=== PATIENT | female | born 1940 | race Caucasian/White ===

== ENCOUNTER 2018-06-22 15:18 | Inpatient (IN) | payer OTHER ==
--- NOTE | 2018-06-22 15:27 | EDPHY ---
HPI/HX/ROS/PE/MDM Narrative: CHIEF COMPLAINT: Stroke alert HPI: This patient is a 77-year-old female with history of COPD. She arrives today via EMS on a stroke alert called by EMS personnel. Per EMS report, the patient was behaving normally yesterday. Around 10:00 this morning, family noted she began to seem altered and became aphasic and was leaning to the right. Family noted she was given about 15mg of her PO morphine this morning. EMS administered Narcan with no improvement in symptoms. The patient is currently on hospice care. Family is en route to the emergency department. HPI obtained primarily from EMS report on arrival as the patient is not currently speaking. REVIEW OF SYSTEMS: A comprehensive 10 system review of systems is otherwise negative aside from elements mentioned in the history of present illness and medical decision making. PMH: End-stage COPD, chronic respiratory failure. SOCIAL HISTORY: Family at bedside. Currently under hospice care. PHYSICAL EXAM: General:Patient is somnolent, responsive to verbal stimuli but refuses to open her eyes and is non-verbal. ENT:Eyes are normal to inspection. ENT inspection normal. Neck: Normal inspection. Full range of motion. Respiratory: Tachypneic. Cardiovascular: Regular rate and rhythm. Strong peripheral pulses. Normal cap refill. Abdomen:The abdomen is nontender to palpation. Back: Normal to inspection. Skin: Pale. No rash. Warm and dry. Extremities: Normal appearance. Neuro: No focal deficits. ED Course: 15:22 Met EMS on arrival. 77 y/o female with end stage COPD arrives via EMS on a stroke alert. Complaint of altered mental status, somnolence, and learning towards the right per family. Patient showed no improvement following Narcan administration. Plan for CT head, EKG, labs including CBC, chemistries, POC troponin. 15:[address] Sosa. The patient's family called her earlier today as the patient seemed altered after morphine administration. There is reportedly some disagreement between family members over the goals and extent of care for this patient. 15:[address], patient sitting up in bed, gripping rails. She is responsive to verbal stimuli but refuses to open her eyes. Pale, tachypneic. No obvious focal neurologic deficits. 15:[address] Mcfadden, radiologist. CT head is negative for acute processes. 15:40 Patient's eldest sister is at bedside. She tells me that she feels that the patient's gave the patient multiple doses of morphine inappropriately this morning, and that he was reading the directions wrong. She feels that the patient's , who is legal medical decision maker, was "pushed" into signing the patient up for hospice inappropriately. When asked why she feels patient should not be hospice status, sister states "because she does pretty well, uses her computer and walks around." As of this moment, paperwork has arrived via fax from [facility] indicating that the patient is in hospice status, and an "Allow Natural " form is clearly filled out. The , who is MDM, has not yet arrived. Pending further clarification, I do not think the patient is a tPA candidate based on existing documentation, so I have not ordered a CTA or administered tPA. 16:[address] Valderrama, hospitalist. She accepts admission to med/surg. 16:44 Notified by tech that patient's CO2 is elevated at 45. This is consistent with POC CO2 reported earlier this afternoon. Patient has known chronic hypoxic and hypercarbic respiratory failure. Patient's family has elected to take her off of hospice care. She will be DNR. Plan to admit as above. - Data Points Imaging Results: Imaging Impressions Head CT 06/22/18 15:20 Impression: 1. Mild periventricular and deep hemispheric white matter change which is nonspecific and can be seen with small vessel ischemic disease. No evidence for acute intracranial abnormality. 2. Minimal chronic sinus-related change. Results called and discussed with Pan Chao MD on 06/22/2018 at 15:34. Brain MRI 06/22/18 17:20 Impression: 1. No acute intracranial findings. 2. Atrophy with white matter change most likely related to chronic microvascular ischemic gliosis. 3. Additional findings as above. Findings communicated via secure Voalte text to Alfredo Valderrama MD 06/22/2018 at 18:47 hours. Laboratory Results: Laboratory Results 06/22/18 15:34 06/22/18 15:34 06/22/18 06/22/18 06/22/18 15:43 15:39 15:34 WBC RBC Hgb POC Hgb 14.6 gm/dL gm/dL (12.6-16.3) Hct POC Hct 43 % % (38-47) MCV MCH MCHC RDW Plt Count MPV Neut % (Auto) Lymph % (Auto) Conway % (Auto) Eos % (Auto) Baso % (Auto) Nucleat RBC Rel Count Absolute Neuts (auto) Absolute Lymphs (auto) Absolute Monos (auto) Absolute Eos (auto) Absolute Basos (auto) Absolute Nucleated RBC Immature Gran % Seg Neutrophils % Band Neutrophils % Lymphocytes % Monocytes % Eosinophils % Basophils % Metamyelocytes % Myelocytes % Promyelocytes % Blast Cells % Immature Gran # Absolute Seg Neuts Absolute Band Neuts Absolute Lymphocytes Absolute Monocytes Absolute Eosinophils Absolute Basophils Absolute Metamyelocyte Absolute Myelocytes Absolute Promyelocytes Absolute Plasma Cells Nucleated RBCs Absolute Blast Cells Plasma Cells % Platelet Estimate Hypochromasia Basophilic Stippling Oval Macrocytes Stomatocytes Smear Review By POC Sodium 144 mEq/L mEq/L (135-145) Sodium POC Potassium 4.9 mEq/L mEq/L (3.3-5.0) Potassium POC Chloride 92 mEq/L L mEq/L (97-110) Chloride Carbon Dioxide POC Total CO2 46 mEq/L H* mEq/L (22-31) Anion Gap POC BUN 20 mg/dL mg/dL (7-23) BUN Creatinine POC Creatinine 0.7 mg/dL mg/dL (0.6-1.0) Estimated GFR Glucose POC Glucose 131 mg/dL H mg/dL (70-100) Calcium POC Troponin I 0.00 ng/mL ng/mL (0.00-0.08) Troponin I TSH Pending 06/22/18 06/22/18 06/22/18 15:34 15:34 15:34 WBC 14.93 10^3/uL H 10^3/uL (3.80-9.50) RBC 4.12 10^6/uL L 10^6/uL (4.18-5.33) Hgb 12.7 g/dL g/dL (12.6-16.3) POC Hgb Hct 44.4 % % (38.0-47.0) POC Hct MCV 107.8 fL H fL (81.5-99.8) MCH 30.8 pg pg (27.9-34.1) MCHC 28.6 g/dL L g/dL (32.4-36.7) RDW 14.2 % % (11.5-15.2) Plt Count 86 10^3/uL L 10^3/uL (150-400) MPV 12.6 fL H fL (8.7-11.7) Neut % (Auto) Not Reported Lymph % (Auto) Not Reported Conway % (Auto) Not Reported Eos % (Auto) Not Reported Baso % (Auto) Not Reported Nucleat RBC Rel Count Not Reported Absolute Neuts (auto) Not Reported Absolute Lymphs (auto) Not Reported Absolute Monos (auto) Not Reported Absolute Eos (auto) Not Reported Absolute Basos (auto) Not Reported Absolute Nucleated RBC Not Reported Immature Gran % Not Reported Seg Neutrophils % 74.0 % % Band Neutrophils % 2.0 % % Lymphocytes % 4.0 % % Monocytes % 19.0 % % Eosinophils % 0.0 % % Basophils % 1.0 % % Metamyelocytes % 0.0 % % Myelocytes % 0.0 % % Promyelocytes % 0.0 % % Blast Cells % 0.0 % % Immature Gran # Not Reported Absolute Seg Neuts 11.05 10^3/uL H 10^3/uL (1.70-6.50) Absolute Band Neuts 0.30 10^3/uL 10^3/uL (0.00-0.70) Absolute Lymphocytes 0.60 10^3/uL L 10^3/uL (1.00-3.00) Absolute Monocytes 2.84 10^3/uL H 10^3/uL (0.30-0.80) Absolute Eosinophils 0.00 10^3/uL L 10^3/uL (0.03-0.40) Absolute Basophils 0.15 10^3/uL H 10^3/uL (0.02-0.10) Absolute Metamyelocyte 0.00 10^3/mL 10^3/mL (0.00-0.00) Absolute Myelocytes 0.00 10^3/mL 10^3/mL (0.00-0.00) Absolute Promyelocytes 0.00 10^3/uL 10^3/uL (0.00-0.00) Absolute Plasma Cells 0.00 10^3/uL 10^3/uL (0.00-0.00) Nucleated RBCs 0 /100 WBC /100 WBC (0-0) Absolute Blast Cells 0.00 10^3/uL 10^3/uL (0.00-0.00) Plasma Cells % 0.0 % % Platelet Estimate DECREASED L (ADEQ) Hypochromasia 1+ H Basophilic Stippling 2+ H Oval Macrocytes 1+ H Stomatocytes 2+ H Smear Review By Jackeline LEVY MD POC Sodium Sodium 143 mEq/L mEq/L (135-145) POC Potassium Potassium 5.1 mEq/L mEq/L (3.5-5.2) POC Chloride Chloride 93 mEq/L L mEq/L (97-110) Carbon Dioxide 45 mEq/l H* mEq/l (22-31) POC Total CO2 Anion Gap 5 mEq/L L mEq/L (6-14) POC BUN BUN 23 mg/dL mg/dL (7-23) Creatinine 0.5 mg/dL L mg/dL (0.6-1.0) POC Creatinine Estimated GFR > 60 Glucose 129 mg/dL H mg/dL (70-100) POC Glucose Calcium 9.6 mg/dL mg/dL (8.5-10.4) POC Troponin I Troponin I 0.020 ng/mL ng/mL (0.000-0.034) TSH Medications Given: Methylprednisolone Sodium Succinate (Solu-Medrol) 125 mg IVP Q6HRS [facility] Stop: 12/19/18 18:29 Last Admin: 06/22/18 18:59 Dose: 125 mg Discontinued Medications Sodium Chloride (Ns) 500 mls @ 0 mls/hr IV EDNOW ONE; Wide Open PRN Reason: Protocol Stop: 06/22/18 15:45 Last Admin: 06/22/18 16:32 Dose: 500 mls Naloxone HCl (Narcan) 0.4 mg IVP ONCE ONE Stop: 06/22/18 17:21 Last Admin: 06/22/18 18:59 Dose: 0.4 mg Point of Care Test Results: Chemistry 06/22/18 06/22/18 15:43 15:39 POC Sodium 144 mEq/L mEq/L (135-145) POC Potassium 4.9 mEq/L mEq/L (3.3-5.0) POC Chloride 92 mEq/L L mEq/L (97-110) POC Total CO2 46 mEq/L H* mEq/L (22-31) POC BUN 20 mg/dL mg/dL (7-23) POC Creatinine 0.7 mg/dL mg/dL (0.6-1.0) POC Glucose 131 mg/dL H mg/dL (70-100) POC Troponin I 0.00 ng/mL ng/mL (0.00-0.08) ISTAT H&H 06/22/18 15:43 POC Hgb 14.6 gm/dL gm/dL (12.6-16.3) POC Hct 43 % % (38-47) General Initial Vital Signs: Initial Vital Signs Temperature (C) 36.7 C 06/22/18 15:10 Heart Rate 97 06/22/18 15:10 Respiratory Rate 25 H 06/22/18 15:10 Blood Pressure 135/59 H 06/22/18 15:10 O2 Sat (%) 91 L 06/22/18 15:10 O2 Delivery Mode Nasal Cannula O2 (L/minute) 4 Allergies/Adverse Reactions: No Known Allergies Allergy (Unverified 06/22/18 16:17) Home Medications: Medication Instructions Recorded Fluticasone Propionate [Flonase 1 spray NS DAILY PRN 06/22/18 Allergy Relief] Fluticasone/Salmeter 250/50Mcg 1 puffs IH BID 06/22/18 [Advair 250/50 (*)] Levothyroxine [Synthroid 88 mcg 88 mcg PO DAILY06 06/22/18 (*)] Tiotropium [place] [Spiriva 2 puffs IH DAILY 06/22/18 Respimat] Morphine Sulfate [Morphine Sulfate 2.5 mg PO Q3HRS PRN #0 06/24/18 20mg/5ml] Departure - Departure Disposition: [facility] Inpatient Acute Clinical Impression: Altered mental status Qualifiers: Altered mental status type: unspecified Qualified Code(s): R41.82 - Altered mental status, unspecified Condition: Fair Report Scribed for: Pan Chao Report Scribed by: Ambreen Mathews Date of Report: 06/22/18 Time of Report: 19:55 Physician Review and Approval Statement: Portions of this note were transcribed by an ED scribe. I personally performed the history, physical exam, and medical decision making; and confirm the accuracy of the information in the transcribed note.
[2018-06-22] MEDS ORDERED: NS 500 ML IV ONE (15:44)
[2018-06-22 15:47] LABS: PLATELET COUNT 86 10^3/uL (150-400)
[2018-06-22] MEDS ORDERED: ONDANSETRON DISINTEGRATING 4 MG TAB PO PRN (17:17)
[2018-06-22] MEDS ORDERED: ALBUTEROL 3 ML DEYVIAL IH PRN (17:17)
[2018-06-22] MEDS ORDERED: PROMETHAZINE HCL 25 MG/ML INJ IVP PRN (17:17)
[2018-06-22] MEDS ORDERED: oxyCODONE IR 5 MG TAB PO PRN (17:17)
[2018-06-22] MEDS ORDERED: ACETAMINOPHEN 325 MG TAB PO PRN (17:17)
[2018-06-22] MEDS ORDERED: HYDROmorphONE/DILAUDID 1 MG/ML INJ IVP PRN (17:17)
[2018-06-22] MEDS ORDERED: ONDANSETRON 4 MG/2 ML VIAL IVP PRN (17:17)
[2018-06-22] MEDS ORDERED: HYDROCODONE/APAP 5/325 TAB PO PRN (17:17)
[2018-06-22] MEDS ORDERED: NALOXONE HCL 0.4 MG/ML INJ IVP ONE (17:20)
[2018-06-22] MEDS ORDERED: NS 1,000 ML IV SCH (17:30)
--- NOTE | 2018-06-22 17:55 | PDGENHP ---
History and Physical - Chief Complaint altered mental status - History of Present Illness 77 yo F with PMH of end stage COPD with associated chronic hypoxic and hypercarbic respiratory failure requiring continuous 3L of o2 and bipap nocturnally at home presenting with her and sister with concerns that she has been more somnolent and weak since last night. Patient has been under the care of hospice prior to presentation, but and sister expressing multiple longstanding concerns around that, particularly concerns that hospice is 'only giving her morphine' and that they are hastening her . Of note, it does seem that both family members have very little understanding of her overall condition and of what hospice care entails and signifies. Reviewing outpatient notes, it does sound like patient's has been concerned about the hospice care for quite some time and considering taking her out of hospice. Patient at the time of my evaluation is very somnolent, opens eyes intermittently but does not follow commands or verbally interact. Per she has been like that since last night, she was unable to get up and walk or dress herself last night or this am and normally is able to walk independently. When she still was not waking up this am, called the hospice nurse who he states became very concerned and recommended he call 911. Apparently on transport patient was given narcan without any change in her mental status, however is convinced that all of this is due to the morphine--she got one dose last night and 3 today per recommendation of hospice. Both and sister state that she was normally interactive as early as yesterday morning and was ambulating and speaking at her baseline at that time. did place her on bipap last night as per routine. History Information - Allergies/Home Medication List Allergies/Adverse Reactions: No Known Allergies Allergy (Unverified 06/22/18 16:17) Home Medications: Azithromycin [Zithromax] 250 mg PO MOWEFR 06/22/18 [Last Taken 06/20/18] Fluticasone Propionate [Flonase Allergy Relief] 1 spray NS DAILY PRN 06/22/18 [ Last Taken Unknown] Fluticasone/Salmeter 250/50Mcg [Advair 250/50 (*)] 1 puffs IH BID 06/22/18 [ Last Taken 06/22/18] Levothyroxine [Synthroid 88 mcg (*)] 88 mcg PO DAILY06 06/22/18 [Last Taken ] Morphine Sulfate [Morphine Sulfate 20mg/5ml] 5 mg PO Q3HRS PRN 06/22/18 [Last Taken 06/22/18] Tiotropium [place] [Spiriva Respimat] 2 puffs IH DAILY 06/22/18 [Last Taken ] amLODIPine BESYLATE [Norvasc 2.5 mg (*)] 2.5 mg PO DAILY 06/22/18 [Last Taken ] I have personally reviewed and updated: family history, medical history, social history, surgical history - Past Medical History COPD (end stage, on hospice prior to arrival), hypertension Additional medical history: chronic hypoxic/hypercarbic respiratory failure. hypothyroid. malnutrition - Surgical History Reports: no pertinent surgical hx - Family History Positive for: non-pertinent - Social History Smoking Status: Former smoker Alcohol Use: None Drug Use: None Additional social history: , lives with her , previously on hospice, PCP Sheila, [employer] Review of Systems Review of Systems: unobtainable 2/2 patients mental status Physical Exam Physical Exam: Temp Pulse Resp BP Pulse Ox 36.7 C 90 16 140/63 H 93 06/22/18 15:10 06/22/18 16:21 06/22/18 16:21 06/22/18 16:21 06/22/18 16:21 Constitutional: chronically ill appearing, cachectic Eyes: PERRL, anicteric sclera Ears, Nose, Mouth, Throat: moist mucous membranes Cardiovascular: regular rate and rhythym, no murmur, rub, or gallop, No edema Respiratory: reduced air movement, expiratory wheeze Gastrointestinal: soft, non-tender abdomen, No guarding, No rebound, No distension Genitourinary: no bladder tenderness Skin: warm, normal color Musculoskeletal: No asymmetric calves Neurologic: CN II-XII Intact, No AAOx3 Psychiatric: encephalopathic Lab Data & Imaging Review 06/22/18 15:34 06/22/18 15:34 WBC 14.93 10^3/uL (3.80-9.50) H 06/22/18 15:34 RBC 4.12 10^6/uL (4.18-5.33) L 06/22/18 15:34 Hgb 12.7 g/dL (12.6-16.3) 06/22/18 15:34 POC Hgb 14.6 gm/dL (12.6-16.3) 06/22/18 15:43 Hct 44.4 % (38.0-47.0) 06/22/18 15:34 POC Hct 43 % (38-47) 06/22/18 15:43 MCV 107.8 fL (81.5-99.8) H 06/22/18 15:34 MCH 30.8 pg (27.9-34.1) 06/22/18 15:34 MCHC 28.6 g/dL (32.4-36.7) L 06/22/18 15:34 RDW 14.2 % (11.5-15.2) 06/22/18 15:34 Plt Count 86 10^3/uL (150-400) L 06/22/18 15:34 MPV 12.6 fL (8.7-11.7) H 06/22/18 15:34 Neut % (Auto) Not Reported 06/22/18 15:34 Lymph % (Auto) Not Reported 06/22/18 15:34 Sharkey % (Auto) Not Reported 06/22/18 15:34 Eos % (Auto) Not Reported 06/22/18 15:34 Baso % (Auto) Not Reported 06/22/18 15:34 Nucleat RBC Rel Count Not Reported 06/22/18 15:34 Absolute Neuts (auto) Not Reported 06/22/18 15:34 Absolute Lymphs (auto) Not Reported 06/22/18 15:34 Absolute Monos (auto) Not Reported 06/22/18 15:34 Absolute Eos (auto) Not Reported 06/22/18 15:34 Absolute Basos (auto) Not Reported 06/22/18 15:34 Absolute Nucleated RBC Not Reported 06/22/18 15:34 Immature Gran % Not Reported 06/22/18 15:34 Seg Neutrophils % 74.0 % 06/22/18 15:34 Band Neutrophils % 2.0 % 06/22/18 15:34 Lymphocytes % 4.0 % 06/22/18 15:34 Monocytes % 19.0 % 06/22/18 15:34 Eosinophils % 0.0 % 06/22/18 15:34 Basophils % 1.0 % 06/22/18 15:34 Metamyelocytes % 0.0 % 06/22/18 15:34 Myelocytes % 0.0 % 06/22/18 15:34 Promyelocytes % 0.0 % 06/22/18 15:34 Blast Cells % 0.0 % 06/22/18 15:34 Immature Gran # Not Reported 06/22/18 15:34 Absolute Seg Neuts 11.05 10^3/uL (1.70-6.50) H 06/22/18 15:34 Absolute Band Neuts 0.30 10^3/uL (0.00-0.70) 06/22/18 15:34 Absolute Lymphocytes 0.60 10^3/uL (1.00-3.00) L 06/22/18 15:34 Absolute Monocytes 2.84 10^3/uL (0.30-0.80) H 06/22/18 15:34 Absolute Eosinophils 0.00 10^3/uL (0.03-0.40) L 06/22/18 15:34 Absolute Basophils 0.15 10^3/uL (0.02-0.10) H 06/22/18 15:34 Absolute Metamyelocyte 0.00 10^3/mL (0.00-0.00) 06/22/18 15:34 Absolute Myelocytes 0.00 10^3/mL (0.00-0.00) 06/22/18 15:34 Absolute Promyelocytes 0.00 10^3/uL (0.00-0.00) 06/22/18 15:34 Absolute Plasma Cells 0.00 10^3/uL (0.00-0.00) 06/22/18 15:34 Nucleated RBCs 0 /100 WBC (0-0) 06/22/18 15:34 Absolute Blast Cells 0.00 10^3/uL (0.00-0.00) 06/22/18:34 Plasma Cells % 0.0 % 06/22/18 15:34 Platelet Estimate DECREASED (ADEQ) L 06/22/18 15:34 Hypochromasia 1+ H 06/22/18 15:34 Basophilic Stippling 2+ H 06/22/18 15:34 Oval Macrocytes 1+ H 06/22/18 15:34 Stomatocytes 2+ H 06/22/18 15:34 POC Sodium 144 mEq/L (135-145) 06/22/18 15:43 Sodium 143 mEq/L (135-145) 06/22/18 15:34 POC Potassium 4.9 mEq/L (3.3-5.0) 06/22/18 15:43 Potassium 5.1 mEq/L (3.5-5.2) 06/22/18 15:34 POC Chloride 92 mEq/L (97-110) L 06/22/18 15:43 Chloride 93 mEq/L (97-110) L 06/22/18 15:34 Carbon Dioxide 45 mEq/l (22-31) H* 06/22/18 15:34 POC Total CO2 46 mEq/L (22-31) H* 06/22/18 15:43 Anion Gap 5 mEq/L (6-14) L 06/22/18 15:34 POC BUN 20 mg/dL (7-23) 06/22/18 15:43 BUN 23 mg/dL (7-23) 06/22/18 15:34 Creatinine 0.5 mg/dL (0.6-1.0) L 06/22/18 15:34 POC Creatinine 0.7 mg/dL (0.6-1.0) 06/22/18 15:43 Estimated GFR > 60 06/22/18 15:34 Glucose 129 mg/dL (70-100) H 06/22/18 15:34 POC Glucose 131 mg/dL (70-100) H 06/22/18 15:43 Calcium 9.6 mg/dL (8.5-10.4) 06/22/18 15:34 POC Troponin I 0.00 ng/mL (0.00-0.08) 06/22/18 15:39 Troponin I 0.020 ng/mL (0.000-0.034) 06/22/18 15:34 Visualized and Interpreted imaging results: Yes Interpretation: head CT: negative Assessment & Plan Assessment: Encephalopathy acute (Acute) 77 yo F with PMH of end stage COPD with associated chronic hypoxic and hypercarbic respiratory failure admitted with acute encephalopathy # metabolic encephalopathy: per patient has had abrupt change since last night, she does not appear to have focal changes neurologically but very difficult to assess given her lack of responsiveness. Brought in as stroke alert --head CT negative, brain MR pending. Suspect could be related to co2 narcosis as next given HCO3 of 46 on BMP as next. Narcan w/o change by EMS, but will repeat per family request. # acute on chronic hypoxic/hypercarbic respiratory failure: she is at her baseline o2 requirement but HCO3 of 46 and concern for worsening hypercarbia-- no old labs available but per PCP report her baseline has been around 40 for some time. ABG pending, CXR pending, will start on continuous bipap for now # copd, end stage: difficult to determine if this represents an exacerbation of her end stage disease or simply disease progression, will start bipap as above, ABG pending, scheduled BDs and IV steroids, abx if indicated # malnutrition: BMI of 18, family reports she has always been low weight but has lost approximately 10 pounds in last several months, will ask for dietary eval, likely due to pulmonary cachexia # lung nodules: known nodules being followed by pulmonary, not surgical candidate per pulm reports # hypothyroid: continue levothyroxine, will check TSH # leukocytosis: CXR and UA pending, family denies infectious sxs prior to her abrupt change in mental status # DNR--previously on hospice care prior to admission, is MDPOA IP status, patient with multiple active high risk issues requiring SDU care, in addition to usual care an additional 35 min critical care time spent in evaluation of labs/imaging and coordination with other providers Patient new to my care. Old records reviewed and summarized as above. Care plan reviewed with ER doctor as above, hx obtained from family and chart given patients mental status
[2018-06-22] MEDS: methylPREDNISolone SOD SUCC 125 MG/2 ML VIAL IVP SCH (18:59)
--- NOTE | 2018-06-22 19:00 | ASMTCMCOM ---
CM Note CM Note Notes: Pt presented to the ED via EMS from her home as a Stroke Alert due to pt reportedly becoming altered and aphasic around 10am. Pt admitted for hypoxia and AMS. Pt's PMH includes end stage COPD, HTN, hypothyroid. Pt has been enrolled w/[facility] since May 2018 but per EMS, pt's Darin (H: [phone]; C: [phone]) was on scene and decided to have pt transported due to the pt's rapid onset of change of condition and decreased mentation. Per EMS, Darin and pt's family was rather upset on scene re: whether to have pt transported or not. Darin and pt's older sister, Janice (H:[phone]; C: [phone]), daughter Alma Castillo (c:[phone]), son Parker Castillo (c: [phone]), and GASTON Tinoco (c:[phone]) arrived to the ED. This CM and the ED MD spoke w/Darin and family at bedside and spent time discussing hospice overall, etc; as it definitely seems that Janice Webster and other family members have some misunderstanding/denial(?) re:hospice care, pt's prognosis, what comfort care looks like, etc. Overall, it does seem that Darin is not emotionally ready to have pt decline and potentially at home (?). *See Providers Reports/H&P* Darin has decided to revoke hospice and have pt admitted for further testing "so we can maybe figure out whats going on." PB received a call from Brenda Horvath, RN Librarian Head ([phone]) for pt's PCP Dr Andria Sosa at [facility] ([phone]) and she had contacted [facility] and requested pt's advance directive, living will and other medical records be faxed to the ED; received pt's Advance Directive and Living Will, which will be scanned into pt's e-chart. PB spoke Babs, the daytime MOD for [facility] ( c:[phone]) and updated him on the pt's situation and admission. PB also called the evening MOD, Pita (c: [phone]) and updated her as well. CM spoke w/JOB John w/[facility] and she said an RN will come to [facility] around 1900 to go over revocation paperwork with Darin. CM confirmed that Darin will be able to stay until the [facility] RN arrives. Darin did say that ultimately the pt would like to be at home and if she goes home, she would want to get back on hospice. Pt and live [place] on [facility]. Pt's staff engineer is Dr Ward. Anticipate pt hopefully to stabilize and DC home w/[facility] if they re-eval and re-accept pt. CM to follow. Date Signed: 06/22/2018 07:00 PM Electronically Signed By:Candace Kebede RN
[2018-06-22] MEDS: IPRATROPIUM/ALBUTEROL 3 ML DEYVIAL IH SCH (21:10)
[2018-06-23] MEDS: methylPREDNISolone SOD SUCC 125 MG/2 ML VIAL IVP SCH ×3 (00:30→13:41)
[2018-06-23] MEDS: IPRATROPIUM/ALBUTEROL 3 ML DEYVIAL IH SCH ×4 (05:03→21:40)
[2018-06-23 06:08] LABS: PLATELET COUNT 58 10^3/uL (150-400)
[2018-06-23] MEDS: LEVOTHYROXINE 88 MCG TAB PO SCH (08:00)
[2018-06-23] MEDS ORDERED: ENOXAPARIN 40 MG/0.4 ML SYR SC SCH (09:00)
--- NOTE | 2018-06-23 11:08 | HOSPPROG ---
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 #Acute metabolic encephalopathy 2/2 CO2 narcosis: Improving with ventilatory support. #Acute on chronic hypoxic/hypercarbic respiratory failure - Continue supplemental O2 to keep sat 88-92%, bipap at night #End-stage COPD: Followed by [facility]. No e/o exacerbation - Continue scheduled bronchodilators, prn albuterol. Stopped steroids #Malnutrition 2/2 pulmonary cachexia #Lung nodules: Known, followed by pulm, not surgical candidate per pulm reports. #Hypothyroid: Continue levothyroxine. #Leukocytosis: Worsened. Not septic. #Goals of care: DNR/DNI, which is appropriate. Previously on hospice up until this admission. Disconnect between severity of illness, patient's wishes for her care, and what hospice care entails. Have discussed with family however no formal decision yet on next steps; will require ongoing discussions. - Pall and hospice care consults placed Dispo: remain in SDU Subjective: Wearing bipap, unable to arouse this AM. Later in morning, RN noted that patient more alert. Taken off bipap and now on nasal canula. Objective: Vital Signs Temp Pulse Resp BP Pulse Ox 36.5 C 89 34 H 122/52 H 95 06/23/18 08:17 06/23/18 08:17 06/23/18 08:17 06/23/18 08:17 06/23/18 08:17 Laboratory Results 06/23/18 05:10 06/23/18 07:45 06/22/18 06/23/18 06/24/18 05:59 05:59 05:59 Intake Total 500 Balance 500 - Physical Exam Constitutional: no apparent distress, cachectic Eyes: PERRL Ears, Nose, Mouth, Throat: dry mucous membranes Cardiovascular: regular rate and rhythym, no murmur, rub, or gallop Respiratory: reduced air movement, respiratory distress Gastrointestinal: normoactive bowel sounds, soft, non-tender abdomen, no palpable masses Genitourinary: no bladder fullness, no bladder tenderness, no renal bruits Skin: no rashes or abrasions, no fluctuance, no induration Musculoskeletal: generalized weakness Neurologic: other (somnolent) Psychiatric: encephalopathic ICD10 Worksheet Patient Problems: Problems Problem Status Onset Altered mental status Acute Encephalopathy acute Acute
--- NOTE | 2018-06-23 12:23 | PDMN ---
Medical Necessity Medical necessity: Pt meets IP criteria per MD & MCG M-100; est los >2 mn for eval/tx of end stage COPD (on hospice prior to arrival) w/associated chronic hypoxic/hypercarbic respiratory failure, acute metabolic encephalopathy & malnutrition; pt w/multiple high risk issues requiring SDU care; per H&P & order 06/22/18
--- NOTE | 2018-06-23 14:12 | GCON ---
[f rep st] CONSULTATION PULMONARY CRITICAL CARE CONSULTATION DATE OF CONSULTATION: 06/23/2018 REASON FOR CONSULTATION: Abnormal mental status, secondary to hypercarbic respiratory failure in a p atient with end-stage COPD/emphysema. HISTORY: The patient is a 77-year-old with end-stage COPD. She has chronic hypoxemic respiratory fa ilure as well as chronic hypercarbia. She has BiPAP at night for ventilatory support, not for obstru ctive sleep apnea. She lives with her at approximately 7000 feet. She seems to do relativel y well sometimes, is somnolent and more short of breath/dyspneic at others. She has been on hospice recently. She was started on MS Contin which has been used intermittently at home. She and her fami ly are somewhat less confused about the goals of hospice care. Secondary to increased lethargy, her gave her some small doses of MS Contin. Last night, she was more somnolent, unable to get up and walk. Her subsequently called 911. Despite her no code status and hospice care, she wa s transported by ambulance to the emergency department and treated aggressively. She was placed on B iPAP. Narcan was given. An MRI of the head was done secondary to her abnormal mental status despite knowledge of her pCO2 of 125. A CT scan of the head was done first. Chest x-ray showed no evidence of pneumonia. She was admitted to the intensive care unit on BiPAP. Blood gas on admission showed a pCO2 of greater than 125 and a pH of 7.10. PO2 was 132 on high-flow oxygen and presumably BiPAP. Subsequent blood gas showed a pH of 7.21 this morning, with a pCO2 of 109 and pO2 of 44. Saturation was 81%. This may have been venous? She was also on BiPAP at this time. Overnight, she was lethargic. She has subsequently woken up. She is off BiPAP now and states that s he wants to go home. She last saw Dr. Ward in the office on June 06. She was doing relatively well a t that time. She was even referred to pulmonary rehabilitation. PAST MEDICAL HISTORY: Remarkable for hypothyroidism, mild systemic hypertension in addition to her s evere underlying COPD/emphysema. Forced vital capacity in December 2017 was approximately 1.7 L, 75% of predicted. FEV1 was approximately 0.5 L, 32% of predicted. She had no response to bronchodilato r at that time. MEDICATIONS: Home medications included Flonase; azithromycin Monday, Monday, Monday; amlodipine, Advair, Spiriva, p.r.n. albuterol, levothyroxine, and MS Contin. SOCIAL HISTORY: The patient is , with a very supportive and extended family. She is no longer smoking. Significant alcohol is negative. FAMILY HISTORY: Noncontributory. Other members of her family have had COPD/emphysema/hypoxemia. REVIEW OF SYSTEMS: Ten point review of systems is negative except as mentioned above. She has had n o infectious symptoms. DRUG ALLERGIES: None known. PHYSICAL EXAMINATION: GENERAL: Reveals a thin woman who is in no distress. She is on an oxygen mas k currently at 2 to 3 L with saturations of approximately 90%. VITAL SIGNS: Blood pressure is 122/5 2. Heart rate 90 with sinus rhythm on the monitor. Respiratory rate is approximately 24 and shallow . She is afebrile. HEENT: Unremarkable for lymphadenopathy or thyromegaly. There is no obvious ju gular venous distention. Mucous membranes are somewhat dry. CHEST: Reveals markedly diminished nahed ath sounds bilaterally without focal findings. Expiratory phase is quite prolonged. There are a few expiratory wheezes. She is not "tight." No rales are present, no rhonchi, no consolidation. HEART : Regular in rate and rhythm. Heart tones are distant. Soft systolic murmur is present. There is no obvious gallop. P2 appears increased. ABDOMEN: Soft, nontender. Bowel sounds are present but d iminished. No Doyle catheter is in place. EXTREMITIES: Unremarkable for edema. SCDs are in place. NEUROLOGIC: Examination is nonfocal. She moves all extremities equally. She is hard of hearing. She is oriented. Responses are appropriate. LABORATORIES: Radiologic studies are as outlined above. Laboratory: White blood cell count is 19,200, hematocrit 44, platelets are 58,000. There is a shift to the left. Sodium is 145, potassium 5.0, CO2 44. BUN 32 with a creatinine of 0.5. Glucose is 13 2. Troponin was negative. Calcium is 8.9. TSH is 0.73. ASSESSMENT AND PLAN: 1. End-stage chronic obstructive pulmonary disease/emphysema. 2. Hypercarbic respiratory failure. 3. Chronic hypoxemia. 4. Do not resuscitate per advance directives. 5. Hospice care. The patient presents with some challenging issues. First, she clearly has end-stage chronic obstruct ramandeep pulmonary disease with marked hypercarbia. She has little in the way of pulmonary reserve. A do not resuscitate status is totally appropriate as she would not survive cardiopulmonary resuscitation and, if placed on the ventilator, she would not be able to get off. She does have BiPAP support at home for ventilatory assistance. She is using this at night. Secondly, when she does well, despite the severity of her disease and little in the way of pulmonary reserve, she does pretty well, gets out, can go to doctor's appointments and even participate in [facility] pulmonary rehabilitation. Because of this, there is at times some disconnect between the severit y of her disease, closeness to , her wishes and the wishes of her family. As a result, goals of care with hospice are unclear to the patient and her family. This will need to be discussed with he r caregivers and her hospice team. At the current time we will continue all present therapies. Solu-Medrol will be stopped as I find no evidence of an exacerbation or significant bronchospasm. Low-dose prednisone can be continued. She is at risk for increased ventilatory failure with hyperoxia as she primarily has only a hypoxic driv e to breathe. Saturations will thus be kept around 90%. If she is above 92%, oxygen will be turned down. Upper 80s are totally acceptable. Despite her wishes to return home today, I do not think this is appropriate, at least initially. I w ould like to see how she does back on nasal cannula oxygen. Her baseline at home at 7000 feet is 4 L during the day. Here, she would probably be on 2 to 3. Hospice consultation with her hospice care team will be requested while she is here in the hospital if possible. All the above was discussed at length with the patient's family and nursing. Further plans and recommendations will be made based on her progress over the next 12 to 24 hours. /[id number]/MODL
--- NOTE | 2018-06-23 17:43 | ASMTCMCOM ---
PB Note CM Note Notes: CM spoke with [facility] and they confirmed that pt is no longer linked with their services. If they would like to return to their services on Hospice, they would have to reapply. CM contacted [facility] in attempt to see fi they could accommodate pt's need and request for going home today on hospice and they were unable to accept pt due to needing a face to face prior to admission. PB spoke at length with pt's Darin and sister Janice who found [facility] very helpful but were very concerned and were happy that they decided to bring pt to the hospital. Later in the conversation pt made it very clear that she wanted to go home and not be in the hospital. CM initiated referral with [facility] who were unable to come see pt until tomorrow at 10am to go through the admission process. PB spoke with Payton and Nurse Germania who were trying to work out a way to have pt be discharged from here and have overnight coverage over the night before they can start the admission process. PB spoke with Dr. Muniz who then spoke with family and everyone was in agreement her staying the night here would be the best thing for her and family because of unsure nightly coverage. Pt was sitting up in bed and is in agreement with this plan. Pt's family is going to attend meeting at 9am and obtain education on Hospice in attempts to avoid any issues in the future. PB spoke at length with pt's Darin without pt's sister present who says he has been preparing himself for her . He says that He would appreciate the family education about hospice, etc. Germania from [facility] is coming at 9am tomorrow and family members will be present. PB notified her of family's questions and is prepared to meet with everyone. notified. Plan Discharge tomorrow on [facility]. Date Signed: 06/23/2018 05:42 PM Electronically Signed By:ROSENDO Hernandez
[2018-06-24] MEDS: LEVOTHYROXINE 88 MCG TAB PO SCH (05:12)
[2018-06-24] MEDS: IPRATROPIUM/ALBUTEROL 3 ML DEYVIAL IH SCH (05:43)
[2018-06-24 08:19] VITALS: BP 135/65
--- NOTE | 2018-06-24 11:16 | PDDCSUM ---
Discharge Summary Discharge Summary: Date of Admission: 06/22/2018 Date of Discharge: 06/24/2018 Disposition: home with home hospice Discharge Diagnoses: 1. End stage COPD/emphysema 2. Chronic hypoxemic/hypercarbic respiratory failure 3. Acute metabolic encephalopathy 2/2 CO2 narcosis 4. Malnutrition 2/2 pulmonary cachexia 5. Lung nodules 6. Hypothyroidism Brief Hospital Course: 77 yo F with PMH of end stage COPD with associated chronic hypoxic and hypercarbic respiratory failure admitted with acute encephalopathy. She was started on hospice care for her pulmonary issues about 4 weeks ago. She was given morphine at home and became encephalopathic and unarousable. They called her hospice company who reportedly asked them to come to the hospital. She was found to have a pCO2>125. She was placed on bipap with some improvement in mentation. There seemed to be a disconnect between the severity of her illness, patient's wishes for her care, and what hospice care entails. Long discussion with family (with corporate sales representative from hospice present) where they were educated on hospice. They ultimately agreed that this was best for patient. She was discharged back to home under hospice care with no plans to return to the hospital. We advised to only use roxanol for significant symptomatic dyspnea or severe discomfort/pain. We continued her inhaled therapies and bipap support at night. Continue supplemental oxygen. Medications: Please refer to EMR. Follow Up Plan: With [facility].
--- NOTE | 2018-06-24 11:16 | PDIAF ---
- Diagnosis Diagnosis: Chronic respiratory failure. Home with hospice. Code Status: Do Not Resuscitate - Medication Management Discharge Medications: electronically signed and located in the Home Medication List. PICC Care - Routine: N/A - Orders Diet Recommendation: no restrictions on diet Doyle: Not applicable - Follow Up Care Current Providers and Referrals: Patient,NotPresent [Primary Care Provider] - As per Instructions
--- NOTE | 2018-06-24 11:28 | ASMTDCNOTE ---
Case Management Discharge Discharge Order Complete? Answers: Yes Patient to Obtain Answers: Other Notes: [facility] Medications Transportation Arranged Answers: [facility] Case Management Transport Answers: Yes Form Complete Faxed Final Orders Answers: Yes Agency/Facility Transfer Answers: Yes Report Printed & Faxed to Receiving Agency Family Notified Answers: Yes Discharge Comments Notes: Germania from [facility] came to speak with family at 9:00am. Pts , sister and numerous other family members were involved in the meeting to discuss hospice and obtain education about the process and how to respect the pt's wishes to be home and NOT return to the hospital. They signed on with [facility] and transport was scheduled for 11:15am. put in dc orders and CM submit via allscripts to [facility]. No other CM needs identified. Date Signed: 06/24/2018 11:27 AM Electronically Signed By:ROSENDO Hernandez
--- NOTE | 2018-06-24 11:30 | ASDISCHSUM ---
Discharge Information Plan Status:Hospice-Home Medically Cleared to Leave: Discharge Date:06/24/2018 11:24 AM CM D/C Disposition:Hospice Home ADT D/C Disposition:Hospice Home Projected Discharge Date:06/23/2018 11:00 AM Transportation at D/C:ALS/BLS Discharge Delay Reason: Follow-Up Date:06/23/2018 11:00 AM Discharge Slot: Final Diagnosis: Placement Information Referral Type:*Hospice Referral ID:[id number] Provider Name:[facility] Address 1:[address] [place] Address 2: City:[place] Selection Factors: State:[place] Patient Contact Information Contact Name:GÓMEZ Relationship: Address:[address] Work Phone: [facility]:[place] Alternate Phone: State/Zip Code:[place] [address] Email: Financial Information Financial Class:Medicare Primary Plan Desc:MEDICARE OUTPATIENT Primary Plan Number:[id number] Secondary Plan Desc:CARMEN STRINGERTY Secondary Plan Number:[id number] Assessment Information LACE LACE Length of stay for Answers: 1 day current admission Acuity / Level of Answers: Yes Care: Did the patient have an inpatient admission? Comorbidities - select Answers: Chronic pulmonary disease all that apply Other Notes: osteoporosis, hypothyro id, cataracts # of Emergency department Answers: 1-2 visits in the last 6 months Score: 8 Date Signed: 06/24/2018 11:28 AM Electronically Signed By:ROSENDO Hernandez [facility] CM Progress Note CM Note CM Note Notes: Pt presented to the ED via EMS from her home as a Stroke Alert due to pt reportedly becoming altered and aphasic around 10am. Pt admitted for hypoxia and AMS. Pt's PMH includes end stage COPD, HTN, hypothyroid. Pt has been enrolled w/[facility] since May 2018 but per EMS, pt's Darin (H: [phone]; C: [phone]) was on scene and decided to have pt transported due to the pt's rapid onset of change of condition and decreased mentation. Per EMS, Darin and pt's family was rather upset on scene re: whether to have pt transported or not. Darin and pt's older sister, Janice (H:[phone]; C: [phone]), daughter Alma Castillo (c:[phone]), son Parker Castillo (c: [phone]), and GASTON Tinoco (c:[phone]) arrived to the ED. This CM and the ED MD spoke w/Darin and family at bedside and spent time discussing hospice overall, etc; as it definitely seems that Janice Webster and other family members have some misunderstanding/denial(?) re:hospice care, pt's prognosis, what comfort care looks like, etc. Overall, it does seem that Darin is not emotionally ready to have pt decline and potentially at home (?). *See Providers Reports/H&P* Darin has decided to revoke hospice and have pt admitted for further testing "so we can maybe figure out whats going on." PB received a call from Brenda Horvath, RN Workers Compensation Analyst ([id number]) for pt's PCP Dr Andria Sosa at [facility] ([id number]) and she had contacted [facility] and requested pt's advance directive, living will and other medical records be faxed to the ED; received pt's Advance Directive and Living Will, which will be scanned into pt's e-chart. PB spoke Babs, the daytime MOD for [facility] ( c:[phone]) and updated him on the pt's situation and admission. PB also called the evening MOD, Pita (c: [phone]) and updated her as well. PB spoke w/JOB John w/[facility] and she said an RN will come to [facility] around 1900 to go over revocation paperwork with Darin. PB confirmed that Darin will be able to stay until the [facility] RN arrives. Darin did say that ultimately the pt would like to be at home and if she goes home, she would want to get back on hospice. Pt and live [place] [facility]. Pt's airset molder is Dr Ward. Anticipate pt hopefully to stabilize and DC home w/[facility] if they re-eval and re-accept pt. CM to follow. Date Signed: 06/22/2018 07:00 PM Electronically Signed By:Candace Kebede RN [facility] Progress Note CM Note CM Note Notes: CM spoke with [facility] and they confirmed that pt is no longer linked with their services. If they would like to return to their services on Hospice, they would have to reapply. PB contacted [facility] in attempt to see fi they could accommodate pt's need and request for going home today on hospice and they were unable to accept pt due to needing a face to face prior to admission. PB spoke at length with pt's Dairn and sister Janice who found [facility] very helpful but were very concerned and were happy that they decided to bring pt to the hospital. Later in the conversation pt made it very clear that she wanted to go home and not be in the hospital. PB initiated referral with [facility] who were unable to come see pt until tomorrow at 10am to go through the admission process. PB spoke with Payton and Nurse Germania who were trying to work out a way to have pt be discharged from here and have overnight coverage over the night before they can start the admission process. PB spoke with Dr. Muniz who then spoke with family and everyone was in agreement her staying the night here would be the best thing for her and family because of unsure nightly coverage. Pt was sitting up in bed and is in agreement with this plan. Pt's family is going to attend meeting at 9am and obtain education on Hospice in attempts to avoid any issues in the future. CM spoke at length with pt's Darin without pt's sister present who says he has been preparing himself for her . He says that He would appreciate the family education about hospice, etc. Germania from [facility] is coming at 9am tomorrow and family members will be present. CM notified her of family's questions and is prepared to meet with everyone. notified. Plan Discharge tomorrow on [facility]. Date Signed: 06/23/2018 05:42 PM Electronically Signed By:ROSENDO Hernandez Case Management Discharge Plan Note Case Management Discharge Discharge Order Complete? Answers: Yes Patient to Obtain Answers: Other Notes: [facility] Medications Transportation Arranged Answers: [facility] Case Management Transport Answers: Yes Form Complete Faxed Final Orders Answers: Yes Agency/Facility Transfer Answers: Yes Report Printed & Faxed to Receiving Agency Family Notified Answers: Yes Discharge Comments Notes: Germania from [facility] came to speak with family at 9:00am. Pts , sister and numerous other family members were involved in the meeting to discuss hospice and obtain education about the process and how to respect the pt's wishes to be home and NOT return to the hospital. They signed on with [facility] and transport was scheduled for 11:15am. put in dc orders and CM submit via Favim to [facility]. No other CM needs identified. Date Signed: 06/24/2018 11:27 AM Electronically Signed By:ROSENDO Hernandez Intervention Information Intervention Type:*Incorrect Registration Date of Service:06/22/2018 06:22 PM Patient Type:Inpatient Staff Member:JOB Paz Courtney Hours: Discipline: Severity: Comment:
--- NOTE | 2018-06-24 12:11 | PDINTPN ---
[employer] Final Progress Note Assessment/Plan: Assessment: End stage COPD/emphysema. No evidence of infection or exacerbation Ventilatory failure with hypercarbia/CO2 narcosis Noninvasive ventilatory support I had a long discussion with the pt, patient's and family members along with a lifeline representatives from hospice. We discussed the appropriateness of hospice and staying at home per the patient's wishes, the pathophysiology of ventilatory failure and CO2 narcosis in advanced lung disease, the importance of not over oxygenating, etc. We also discussed Roxanol therapy and that this for the most part would not be needed unless significant symptomatic dyspnea or pain/discomfort were present. She appears to be quite comfortable when her CO2 rises, is not dyspneic, and simply becomes more lethargic/sleepy. We also discussed the use of ventilatory support with BiPAP intermittently throughout the day as well as at night. At some point however the family the patient may choose to withhold BiPAP, last CO2 to rise, and allow her to pass away. Plan: Patient to go home with hospice today. Family on board with this as outlined above and hopefully sufficiently educated. Roxanol will be held unless needed for significant symptomatic dyspnea or discomfort/pain which she has not had. Inhaled therapies will be continued. BiPAP ventilatory support will be continued. 45 min of critical care time was spent directly with the patient, including family conference as outlined above. Subjective: Doing okay. Off BiPAP. Sitting up in bed eating. Responsive. Objective: Vital Signs Temp Pulse Resp BP Pulse Ox 36.9 C 101 H 30 H 135/65 H 94 06/24/18 08:16 06/24/18 08:16 06/24/18 08:16 06/24/18 08:16 06/24/18 08:16 Laboratory Results 06/23/18 05:10 06/23/18 07:45 06/23/18 06/24/18 06/25/18 05:59 05:59 05:59 Intake Total 500 300 300 Output Total 300 Balance 500 0 300 Physical Exam - Physical Exam General Appearance: no apparent distress, thin, other (Slightly lethargic, slow responses) EENT: PERRL/EOMI, other (Nasal cannula in place) Neck: normal inspection (No JVD) Respiratory: lungs clear, decreased breath sounds (Markedly decreased breath sounds bilaterally), wheezing (Few end expiratory wheezes, not tight), prolonged expiration, No rales, No rhonchi Cardiac/Chest: tachycardia (Sinus, soft systolic murmur, distant heart tones) Abdomen: normal bowel sounds, non-tender, soft Skin: normal color, warm/dry Extremities: No pedal edema Neuro/Psych: no motor/sensory deficits (Moves all extremities equally), cognition abnormalities (Slightly lethargic but able to answer simple questions. Not participatory in end of life discussions.) ICD10 Worksheet Patient Problems: Problems Problem Status Onset Altered mental status Acute Encephalopathy acute Acute
== END 2018-06-24 11:24 | disposition hospice, home (50) | DRG 189 ==
LOC: EDBD 15:18 → OBSVTOIN 17:21 → F2N 19:16
PROVIDERS: ADMIT Internal Medicine; ATTEND Internal Medicine
PROC: 5A09358 Assistance with Respiratory Ventilation, Less than 24 Consecutive Hours, Intermittent Positive Airway Pressure (ICD-10-PCS; principal; 2018-06-22)
DX: J96.12 Chronic respiratory failure with hypercapnia (principal); T40.2X5A Adverse effect of other opioids, initial encounter; G93.41 Metabolic encephalopathy; J96.11 Chronic respiratory failure with hypoxia; J43.8 Other emphysema; E46 Unspecified protein-calorie malnutrition; R91.8 Other nonspecific abnormal finding of lung field; E03.9 Hypothyroidism, unspecified; I10 Essential (primary) hypertension; Z87.891 Personal history of nicotine dependence
CPT/HCPCS: 70551-PN; 82435-PO; 82565-PO; 82947-PO; 84132-PO; 84295-PO; 84484-ER; 84520-PO; 85014-ER; 96374; J2310; J2550; J2930; J7613